=== PATIENT | female | born 1950 | race American Indian/Alaskan Native ===

== ENCOUNTER 2016-12-20 00:39 | Emergency (ER) | payer MEDICARE ==
--- NOTE | 2016-12-20 02:14 | Cat Scan Report ---
FINAL REPORT PROCEDURE: CT HEAD/BRAIN WO CON TECHNIQUE: Computerized tomography of the head was performed without contrast material. HISTORY: dizziness COMPARISON: No prior studies are available for comparison. FINDINGS: Skull and scalp: Normal. Paranasal sinuses: Normal. Ventricles and subarachnoid spaces: Normal. Cerebrum: No evidence of hemorrhage, acute infarction or mass . Cerebellum and brainstem: No evidence of hemorrhage, acute infarction or mass. Vasculature: Normal. Comments: None. IMPRESSION: There is no evidence of an acute intracranial process
[2016-12-20 03:08] LABS: Basophils % (Auto) 0.8 % (0.0-1.8); Hematocrit 41.4 % (30.3-42.9); Hemoglobin 13.5 gm/dl (10.1-14.3); Mean Corpuscular HGB Conc 33 % (30-34); Mean Corpuscular Hemoglobin 27 pg (28-32); Mean Corpuscular Volume 84 fl (79-97); Platelet Count 328 K/mm3 (140-440); Red Blood Count 4.91 M/mm3 (3.65-5.03); Red Cell Distribution Width 14.6 % (13.2-15.2); White Blood Count 9.1 K/mm3 (4.5-11.0)
[2016-12-20 03:20] LABS: Anion Gap 18 mmol/L; BUN/Creatinine Ratio 16.25; Blood Urea Nitrogen 13 mg/dL (7-17); Calcium 9.8 mg/dL (8.4-10.2); Carbon Dioxide 23 mmol/L (22-30); Chloride 103.6 mmol/L (98-107); Glucose 91 mg/dL (65-100); Potassium 4.4 mmol/L (3.6-5.0); Sodium 140 mmol/L (137-145)
[2016-12-20] MEDS ORDERED: ANTIVERT PO ONE (06:58)
--- NOTE | 2016-12-20 07:03 | Emergency Department Report ---
HPI - General Chief Complaint: Dizziness Time Seen by Provider: 12/20/16 06:50 - HPI HPI: Room 26 The patient is a 65-year-old female presenting with a chief complaint of dizziness. The patient states she's had intermittent dizziness for the past 2 days. Patient states sometimes bending over increases the dizziness. Patient denies headache of any type. Patient states the dizziness worsened yesterday she checked her blood pressure it read 186/114. She subsequently came to the emergency department for evaluation. Patient states she feels "okay" right now but feels slightly dizzy. The patient gives her dizziness a score of 2/10 Location: Head Duration: Intermittent for 2 days Quality: Dizziness Severity: 2/10 Modifying factors: [see above] Context: [see above] Mode of transportation: [not driving] ED Past Medical Hx - Past Medical History Previous Medical History?: Yes Hx Hypertension: Yes - Surgical History Past Surgical History?: Yes Additional Surgical History: shoulder and wrist - Family History Family history: no significant - Social History Smoking Status: Former Smoker (none 30 years) Substance Use Type: Alcohol (occasional) - Medications Home Medications: Home Medications Medication Instructions Recorded Confirmed Last Taken Type Meclizine [Antivert] 25 mg PO TID PRN #20 tablet 12/20/16 Unknown Rx ED Review of Systems ROS: Stated complaint: DIZZINESS/HIGH BLOOD PRESSURE Other details as noted in HPI Comment: All other systems reviewed and negative Constitutional: denies: chills, fever Eyes: denies: eye pain, eye discharge, vision change ENT: denies: ear pain, throat pain Respiratory: denies: cough, shortness of breath, wheezing Cardiovascular: denies: chest pain, palpitations Endocrine: no symptoms reported Gastrointestinal: denies: abdominal pain, nausea, diarrhea Genitourinary: denies: urgency, dysuria, discharge Musculoskeletal: denies: back pain, joint swelling, arthralgia Skin: denies: rash, lesions Neurological: vertigo. denies: headache Psychiatric: denies: anxiety, depression Hematological/Lymphatic: denies: easy bleeding, easy bruising Physical Exam - Physical Exam Vital Signs: Vital Signs 12/20/16 12/20/16 12/20/16 01:09 03:40 03:43 Temperature 98.1 F 97.8 F Pulse Rate 90 78 Respiratory 18 15 15 Rate Blood Pressure 167/91 Blood Pressure 136/74 [Right] O2 Sat by Pulse 100 99 100 Oximetry Physical Exam: GENERAL: The patient is well-developed well-nourished female lying on stretcher not appearing to be in acute distress. [] HEENT: Normocephalic. Atraumatic. Extraocular motions are intact. Patient has moist mucous membranes. No pathological nystagmus noted NECK: Supple. No meningitic signs are noted. There is no adenopathy noted. CHEST/LUNGS: Clear to auscultation. There is no respiratory distress noted. HEART/CARDIOVASCULAR: Regular. There is no tachycardia. There is no gallop rub or murmur. ABDOMEN: Abdomen is soft, nontender. Patient has normal bowel sounds. There is no abdominal distention. SKIN: There is no rash. There is no edema. There is no diaphoresis. NEURO: The patient is awake, alert, and oriented. The patient is cooperative. The patient has no focal neurologic deficits. The patient has normal speech. Cranial nerves II through XII grossly intact, no drift. 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 No dysmetria noted with [id number] bilaterally MUSCULOSKELETAL: There is no evidence of acute injury. ED Course Vital Signs 12/20/16 12/20/16 12/20/16 01:09 03:40 03:43 Temperature 98.1 F 97.8 F Pulse Rate 90 78 Respiratory 18 15 15 Rate Blood Pressure 167/91 Blood Pressure 136/74 [Right] O2 Sat by Pulse 100 99 100 Oximetry ED Medical Decision Making - Lab Data Result diagrams: 12/20/16 01:34 12/20/16 01:34 Laboratory Tests 12/20/16 12/20/16 12/20/16 01:34 01:34 04:22 WBC 9.1 RBC 4.91 Hgb 13.5 Hct 41.4 MCV 84 MCH 27 L MCHC 33 RDW 14.6 Plt Count 328 Lymph % (Auto) 47.0 H [place] % (Auto) 7.4 H Eos % (Auto) 6.0 H Baso % (Auto) 0.8 Lymph # 4.3 [place] # 0.7 Eos # 0.5 H Baso # 0.1 Seg Neutrophils % 38.8 L Seg Neutrophils # 3.5 Sodium 140 Potassium 4.4 Chloride 103.6 Carbon Dioxide 23 Anion Gap 18 BUN 13 Creatinine 0.8 Estimated GFR > 60 BUN/Creatinine Ratio 16.25 Glucose 91 Calcium 9.8 Troponin T < 0.010 < 0.010 - EKG Data -: EKG Interpreted by Me EKG shows normal: sinus rhythm Rate: normal - EKG Data When compared to previous EKG there are: previous EKG unavailable Interpretation: nonspecific ST-T wave eryn (T-wave inversion in lead 3 and V2) - Radiology Data Radiology results: report reviewed (CT head), image reviewed (CT head) CT head (read by radiologist)-there is no evidence of acute intracranial process - Medical Decision Making Patient has normal blood pressure at the time of dispo and still exhibits some dizziness. Patient admonished to follow with a primary doctor for further evaluation of a blood pressure - Differential Diagnosis ICH, cerebellar mass, hypertensive urgency, vertigo Critical care attestation.: If time is entered above; I have spent that time in minutes in the direct care of this critically ill patient, excluding procedure time. ED Disposition Clinical Impression: Vertigo Disposition: DISCHARGED TO HOME OR SELFCARE Is pt being admited?: No Does the pt Need Aspirin: No Condition: Stable Instructions: Vertigo (ED) Additional Instructions: Return to the emergency department immediately should you develop worsening symptoms, fever, inability to tolerate food or liquid or any other concerns. Prescriptions: Meclizine [Antivert] 25 mg PO TID PRN #20 tablet PRN Reason: Vertigo Referrals: PRIMARY CARE, [Primary Care Provider] - 3-5 Days GERALD WEBER MD [Staff Physician] - 3-5 Days (Dr. Weber is a neurologist. Please follow up with him for further evaluation) Time of Disposition: 07:05
[2016-12-20 07:26] VITALS: BP 126/79
== END 2016-12-20 07:26 | disposition home or self-care (01) ==
LOC: ED 00:39
DX: R42 Dizziness and giddiness (principal); I10 Essential (primary) hypertension; Z87.891 Personal history of nicotine dependence
CPT/HCPCS: 36415; 70450; 80048; 84484; 85025; 93005; 93010